=== PATIENT | female | born 1965 | race Hispanic/Latino ===

== ENCOUNTER 2025-03-01 14:02 | Outpatient (CLI) | payer SELFPAY | END 2025-03-01 14:03 | disposition home or self-care (01) | LOC: CSHWCC 14:02 | PROVIDERS: ATTEND Nurse Practitioner Family | DX: E11.622 Type 2 diabetes mellitus with other skin ulcer (principal); L97.811 Non-pressure chronic ulcer of other part of right lower leg limited to breakdown of skin ==

== ENCOUNTER 2025-03-12 15:26 | Outpatient (CLI) | payer SELFPAY | END 2025-03-12 15:27 | disposition home or self-care (01) | LOC: CSHWCC 15:26 | PROVIDERS: ATTEND Nurse Practitioner Family | DX: E11.622 Type 2 diabetes mellitus with other skin ulcer (principal); L97.811 Non-pressure chronic ulcer of other part of right lower leg limited to breakdown of skin | CPT/HCPCS: 11042 ==

== ENCOUNTER 2025-03-19 15:03 | Outpatient (CLI) | payer SELFPAY | END 2025-03-19 15:04 | disposition home or self-care (01) | LOC: CSHWCC 15:03 | PROVIDERS: ATTEND Nurse Practitioner Family | DX: E11.622 Type 2 diabetes mellitus with other skin ulcer (principal); L97.811 Non-pressure chronic ulcer of other part of right lower leg limited to breakdown of skin | CPT/HCPCS: 11042 ==

== ENCOUNTER 2025-03-26 14:55 | Outpatient (CLI) | payer SELFPAY | END 2025-03-26 14:56 | disposition home or self-care (01) | LOC: CSHWCC 14:55 | PROVIDERS: ATTEND Nurse Practitioner Family | DX: E11.622 Type 2 diabetes mellitus with other skin ulcer (principal); L97.811 Non-pressure chronic ulcer of other part of right lower leg limited to breakdown of skin | CPT/HCPCS: 11042 ==

== ENCOUNTER 2025-04-01 15:15 | Outpatient (CLI) | payer SELFPAY | END 2025-04-01 15:16 | disposition home or self-care (01) | LOC: CSHWCC 15:15 | PROVIDERS: ATTEND Nurse Practitioner Family | DX: E11.622 Type 2 diabetes mellitus with other skin ulcer (principal); L97.811 Non-pressure chronic ulcer of other part of right lower leg limited to breakdown of skin | CPT/HCPCS: 11042 ==

== ENCOUNTER 2025-04-20 12:42 | Outpatient (CLI) | payer SELFPAY | END 2025-04-20 12:43 | disposition home or self-care (01) | LOC: CSHWCC 12:42 | PROVIDERS: ATTEND Nurse Practitioner Family | DX: E11.622 Type 2 diabetes mellitus with other skin ulcer (principal); L97.811 Non-pressure chronic ulcer of other part of right lower leg limited to breakdown of skin | CPT/HCPCS: 11042 ==

== ENCOUNTER 2025-05-18 15:03 | Outpatient (CLI) | payer SELFPAY | END 2025-05-18 15:04 | disposition home or self-care (01) | LOC: CSHWCC 15:03 | PROVIDERS: ATTEND Nurse Practitioner Family | DX: E11.622 Type 2 diabetes mellitus with other skin ulcer (principal); L97.812 Non-pressure chronic ulcer of other part of right lower leg with fat layer exposed | CPT/HCPCS: 97597 ==

== ENCOUNTER 2025-06-01 14:54 | Outpatient (CLI) | payer SELFPAY | END 2025-06-01 14:55 | disposition home or self-care (01) | LOC: CSHWCC 14:54 | PROVIDERS: ATTEND Nurse Practitioner Family | DX: E11.622 Type 2 diabetes mellitus with other skin ulcer (principal); L97.812 Non-pressure chronic ulcer of other part of right lower leg with fat layer exposed | CPT/HCPCS: 99213; G0463 ==